=== PATIENT | male | born 1970 | race Two or more races ===

== ENCOUNTER 2019-03-10 19:46 | Emergency (ER) | payer SELFPAY ==
--- NOTE | 2019-03-10 19:55 | NUR ---
PER [facility] PATIENT TOLD PARAMEDICS "FUCK THIS PLACE" AND WALKED OUT.
--- NOTE | 2019-03-10 19:56 | NUR ---
RADHA [address]Y [address]
== END 2019-03-10 19:57 | disposition left against medical advice (07) ==
LOC: ER 19:47
DX: Z53.21 Procedure and treatment not carried out due to patient leaving prior to being seen by health care provider (principal)